=== PATIENT | male | born 1980 | race Caucasian/White ===

== ENCOUNTER 2017-07-30 13:01 | Day surgery (SDC) | payer BC ==
[2017-07-30] MEDS ORDERED: MIDAZOLAM 1 MG/ML 2 ML INJ (14:28)
[2017-07-30] MEDS ORDERED: LIDOCAINE 2% (SDV) 5 ML INJ (14:28)
[2017-07-30] MEDS ORDERED: PROPOFOL 20 ML (14:28)
== END 2017-07-30 15:36 | disposition home or self-care (01) ==
LOC: GIL 13:01
DX: K29.30 Chronic superficial gastritis without bleeding (principal); K44.9 Diaphragmatic hernia without obstruction or gangrene; E11.9 Type 2 diabetes mellitus without complications; I10 Essential (primary) hypertension; Z87.891 Personal history of nicotine dependence
CPT/HCPCS: 43239; 88305; 88312; 88313